=== PATIENT | female | born 1985 | race Caucasian/White ===

== ENCOUNTER 2016-05-30 22:02 | Emergency (ER) | payer MEDICAID, OTHER ==
[~2016-05-30] VITALS: Ht 154.9 cm; Wt 70.0 kg
--- NOTE | 2016-05-31 00:36 | NUR ---
Patient to bed 02.
--- NOTE | 2016-05-31 00:57 | NUR ---
PATIENT PRESENTS TO ED WITH N/V/D . PT STATES SHE IS CURRENTLY HAVING GENERALIZED ABD PAIN AND HAS HAD 10+ BOWEL MOVEMENTS; SKIN IS PINK/WARM/DRY; AAOX4 WITH EVEN AND STEADY GAIT; LUNGS CLEAR BL; HR EVEN AND REGULAR; PT DENIES ANY FEVER, CP, SOB, OR COUGH AT THIS TIME; PATIENT STATES PAIN OF 8/10 AT THIS TIME; VSS; PATIENT POSITIONED FOR COMFORT; HOB ELEVATED; BEDRAILS UP X2; BED DOWN. ER MD MADE AWARE OF PT STATUS. BOYFRIEND AT BEDSIDE
[2016-05-31] MEDS ORDERED: NACL 0.9% 2,000 ML IV ONE (01:14)
[2016-05-31] MEDS ORDERED: ONDANSETRON 4 MG/2 ML VIAL IVP ONE (01:15)
--- NOTE | 2016-05-31 03:10 | NUR ---
DR. ALLEN AT BEDSIDE
[2016-05-31 03:15] VITALS: BP 132/99
--- NOTE | 2016-05-31 03:15 | NUR ---
Patient discharged with v/s stable. Written and verbal after care instructions given and explained. Patient alert, oriented and verbalized understanding of instructions. Ambulatory with steady gait. All questions addressed prior to discharge. ID band removed. Patient advised to follow up with PMD. Rx of ZOFRAN ODT 4MG AND BENTYL 20MG given. Patient educated on indication of medication including possible reaction and side effects. Opportunity to ask questions provided and answered.
== END 2016-05-31 03:15 | disposition home or self-care (01) ==
LOC: MED 22:02
DX: R11.2 Nausea with vomiting, unspecified (principal); R19.7 Diarrhea, unspecified; R10.84 Generalized abdominal pain
CPT/HCPCS: 81025; 96361; 96374; 99284; J2405; J7030